=== PATIENT | male | born 1960 | race Caucasian/White ===

== ENCOUNTER 2023-12-15 09:33 | Inpatient (IN) | payer BC, SELFPAY ==
--- NOTE | 2023-11-16 08:28 | CM ---
Patient is scheduled for a L TK Revision on 12/15/23. Spoke with patient prior to surgery via telephone. Introduced role of Orthopedic Navigator. Patient reports that he lives with his in a two story home. There are three steps to enter and a
flight of steps to the second floor. Patient plans to stay on the first floor after surgery. He currently functions independently. He has a cane and rolling walker. He had VN services after his TKR in 2021 (which was done at an outside facility).
PCP is Yung Cordero.
Discussed orthopedic program and post surgical plans. Reviewed anticipated length of stay and that goal is for her to return home at discharge. Also reviewed outpatient PT. Patient is in agreement with tentative plan and will go directly to
outpatient PT at [facility]. He will have support from his when he goes home.
Patient will complete online education.
Plan: Orthopedic Navigator will remain available to assist with the care of patient and will reassess discharge needs after surgery.
[2023-11-25 09:20] VITALS: BMI 29.0
[2023-11-25 10:46] LABS: Hematocrit 49.8 % (39.0-52.0); Hemoglobin 16.7 g/dL (13.0-18.0); Mean Corp Hgb Conc. 33.5 g/dL (33.0-37.0); Mean Corpuscular Volume 92.6 fL (80.0-94.0); Mean Platelet Volume 10.6 fL (7.4-10.4); Platelet Count 246 10^3/uL (130-400); Red Blood Cell Count 5.38 10^6/uL (4.70-6.10); Red Cell Dist. Width 12.8 % (11.5-14.5); White Blood Cell Count 6.3 10^3/uL (4.8-10.8)
[2023-11-25 12:57] LABS: Glycohemoglobin (HgbA1c) 5.4 % (4.0-5.6)
[2023-11-25 12:59] LABS: ALT (SGPT) 35 U/L (0-50); AST (SGOT) 36 U/L (17-59); Albumin 4.6 g/dl (3.5-5.0); Alkaline Phosphatase 71 U/L (38-126); Blood Urea Nitrogen 19 mg/dl (9-20); Calcium 9.9 mg/dl (8.4-10.2); Carbon Dioxide 28 mmol/L (22-30); Chloride 103 mmol/L (98-107); Estimated Creatinine Clearance 87 ml/min; Glucose 86 mg/dl (70-99); Potassium 5.3 mmol/L (3.5-5.1); Sodium 140 mmol/L (135-145); Total Bilirubin 1.1 mg/dl (0.2-1.3); eGFR > 60.00
[2023-11-25 16:46] VITALS: BMI 29.0
[2023-12-15] VITALS (14 sets, daily range): BP systolic 99–141; BP diastolic 41–90; PULSE 65; O2SAT 95
[2023-12-15] MEDS: NORMOSOL-R 1000 IV (09:45)
[2023-12-15] MEDS: VANCOCIN 300 MG IV (10:00)
[2023-12-15] MEDS: VANCOCIN 300 ML IV (10:00)
[2023-12-15] MEDS: CELEBREX 200 MG PO (10:10)
[2023-12-15] MEDS: TYLENOL 650 MG PO ×3 (10:11→19:56)
--- NOTE | 2023-12-15 15:18 | W.PN.UPDATE ---
Update Note
Progress Note Update
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
DVT prophylaxis - ASA, b/l venous foot pumps
HTN - + parameters - monitor BP
Asthma, mild and intermittent, and GLORIA, no current CPAP - monitor O2
- IS
- Resume inhalers
- Add supplemental O2 HS
MRSA positive nasal screen 11/25/2023 - add IV Vanco in addition to IV Ancef for joint prophylaxis
- Did advise he continue nasal Mupirocin BID 2 weeks post-surgery as incision heals
Osteoarthritis, status post left total knee arthroplasty, 05/2022, by Dr. Rajan Trinidad
Hyperlipidemia
Sinus bradycardia, medication induced, asymptomatic
CAD/NSTEMI, 2016, status post PCI with drug-eluting stent to mid LAD
Peripheral vascular disease without claudication
Chronic low back pain
Mild hyperkalemia
--- NOTE | 2023-12-15 15:19 | W.PN.UPDATE ---
Update Note
Progress Note Update
Patient seen in PACU. VSS. Pulm: nonlabored. CV: regular. LLE: Dressing CDI. Calf soft. Able to fully extend. Postop xrays as expected. ASA for DVT prophylaxis. Plan for discharge home tomorrow with outpatient PT.
[2023-12-15] MEDS: NSS 1000 IV (15:37)
[2023-12-15] MEDS: DILAUDID 0.25 MG IV (16:50)
[2023-12-15] MEDS: ROXICODONE 5 MG PO (17:33)
--- NOTE | 2023-12-15 17:53 | PTCARENOTE ---
Pt arrived to 2S in bed. Full assessment completed. B/l LE neurovascular assessment WDL. L knee primaseal saturated, DSG reinforced with pressure DSG by HYDRAUL[employer] GOVERNOR ASSEMBLER. Per HYDRAULIC GOVERNOR ASSEMBLER Dr Trinidad aware and anticipated to be in to see pt later this evening. IVF
infusing per order. Bed locked and in the lowest position, safety maintained. Oriented to room and call reeves, daughter at bedside.
[2023-12-15] MEDS: VITAMIN D3 (cholecalciferol) PO (17:59)
[2023-12-15] MEDS: ASPIRIN 325 MG PO (18:08)
[2023-12-15] MEDS: ANCEF 5 IV (18:08)
[2023-12-15] MEDS: ZETIA 10 MG PO (18:08)
[2023-12-15] MEDS: BACTROBAN 2% OINTMENT 1 APPLIC NASAL (19:56)
[2023-12-15] MEDS: DECADRON 4 MG PO (19:57)
[2023-12-15] MEDS: COLACE 100 MG PO (19:58)
[2023-12-15] MEDS: SENOKOT 17.1999999999999993 MG PO (19:58)
[2023-12-15] MEDS: ROXICODONE 10 MG PO (19:58)
[2023-12-15] MEDS: PEPCID 20 MG PO (21:18)
[2023-12-15] MEDS: LIPITOR 80 MG PO (21:18)
[2023-12-15] MEDS: VANCOCIN 200 IV (21:19)
[2023-12-15] MEDS: DILAUDID 0.5 MG IV (21:24)
--- NOTE | 2023-12-15 21:48 | W.PN.UPDATE ---
Update Note
Progress Note Update
Patient seen and examined. Bleeding about the knee dressing. Bandage removed and active oozing from the mid portion of the incision and distal aspect of the incision. Additional maria dolores added. Oozing stopped. New Aquacell placed with
compression dressing. Oral TXA ordered. VSS. NVI distally. Calf soft.
[2023-12-15] MEDS: CYKLOKAPRON 1300 MG PO (21:54)
--- NOTE | 2023-12-15 22:01 | PTCARENOTE ---
Dr. Trinidad in to see pt. Left knee dressing oozing and reinforced dressing is saturated. Dr. Trinidad at bedside to take down dressing, assess knee, and place new dressing. medications administered as ordered. Pt now resting comfortably. Will continue
to monitor.
[2023-12-16] MEDS: TYLENOL 650 MG PO ×3 (00:55→12:13)
[2023-12-16] MEDS: DILAUDID 4 MG PO ×3 (00:55→10:12)
[2023-12-16] MEDS: ANCEF 5 IV (01:06)
[2023-12-16 03:05] VITALS: BP 117/60
[2023-12-16] MEDS: TYLENOL PO (04:46)
--- NOTE | 2023-12-16 07:36 | W.PN.ORTHO ---
Today's Communication / Plan
-
Plan for discharge home today with outpatient PT on Tuesday
Assessment
.
Distal Motor Intact: Yes
Dressing:
Clean, dry and intact.
Assessment:
Doing well postop
Plan
.
Surgery / Date: 12/15/2023 Amos LTKRevision
DVT Prophylaxis: Aspirin
Activity:
Out of bed.
PT/OT
Discharge Plan: Home w/ Outpatient PT
Subjective
.
.:
Patient resting comfortably. OOB today.
Vital Signs and Labs
.
Vital Signs and Labs:
Lab Results
11/25/23 09:14
11/25/23 09:14
Temp Pulse Resp BP Pulse Ox
97.9 F 60 20 117/60 96
12/16/23 03:05 12/16/23 03:05 12/16/23 03:05 12/16/23 03:05 12/16/23 03:05
Physical Exam
-
Pulm: nonlabored
CV: regular
LLE: Dressing CDI this AM. No significant bleeding. Calf soft. NVI distally. Able to fully extend
[2023-12-16 07:40] VITALS: BP 107/55
[2023-12-16 08:21] VITALS: BP 107/55
--- NOTE | 2023-12-16 08:27 | W.DCSUMMARY ---
Discharge Summary
Discharge Data
Date of Admission: 12/15/23
Date of Discharge: 12/16/23
-
Pending Results: No
Hospital Course
The patient underwent left total knee arthroplasty revision for aseptic loosening with Dr. Trinidad without complications. The patient recovered in the PACU and was transferred to the floor. The postoperative course remained uncomplicated. At the
time of discharge, the patient was noted to be tolerating a regular diet, ambulating with adherence to weightbearing and activity restrictions, able to accomplish activities of daily living at baseline level, and had pain controlled on oral
medications. Prior to discharge, the patient was provided with appropriate discharge/follow-up/return instructions, and discharge medications
Discharge Plan
-
Patient Disposition: Home (Routine Discharge)
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
Condition: Good
Diet: Regular
Activity: As tolerated and With Walker
Driving Restrictions: Not until seen by your Dr
Bathing Restrictions: OK to Shower
Other Services: PT
Wound Care: Dressing to be removed 1 week post-surgery. [place] to be removed at 2 week follow-up with surgeon's office.
Stand Alone Forms: Total Hip/Knee Replacement D/C
Referrals:
[facility], outpatient PT [Other] - 12/19/23
Rajan Trinidad MD [Active] - in two weeks
Yung Yepez MD [Family Provider] -
Prescriptions:
New
mupirocin 2 % ointment
1 applic intranasal BID Qty: 1 0RF
Patient Comments:
pt started Tuesday night
aspirin 325 mg Tablet
325 mg PO DAILY 30 Days Qty: 30 0RF
docusate sodium 100 mg Capsule
100 mg PO BID 15 Days Qty: 30 0RF
dexamethasone 4 mg Tablet
4 mg PO BID 3 Days Qty: 6 0RF
famotidine 20 mg Tablet
20 mg PO HS 15 Days Qty: 15 0RF
oxycodone 5 mg Tablet
5 mg PO Q4HPRN PRN (Reason: moderate pain) Qty: 20 0RF
Rx Instructions:
Dr Randy Carson [id number]
Continuing therapy
sennosides [Senna Laxative] 8.6 mg Tablet
17.2 mg PO BID 15 Days Qty: 60 0RF
acetaminophen 325 mg Tablet
650 mg PO Q4HWA 10 Days Qty: 120 0RF
Continued
atorvastatin 80 mg Tablet
80 mg PO HS
valsartan 80 mg Tablet
80 mg PO DAILY
amlodipine 5 mg Tablet
5 mg PO BID
metoprolol succinate 25 mg Tablet Extended Release 24 Hr
12.5 mg PO DAILY
albuterol sulfate [Ventolin HFA] 90 mcg/actuation Hfa Aerosol Inhaler
2 puff INHALATION Q6H PRN (Reason: SOB)
ezetimibe 10 mg Tablet
10 mg PO DAILY
coenzyme Q10 [CoQ-10] 100 mg Capsule
300 mg PO HS
astaxanthin 12 mg Capsule
6 mg PO DAILY
Weed 3
1 cap PO DAILY
Mario Alberto Niagen
1 cap PO DAILY
cholecalciferol (vitamin D3) [Vitamin D3] 125 mcg (5,000 unit) Tablet
125 mcg PO DAILY
vitamin K2 100 mcg Capsule
100 mcg PO DAILY
turmeric
1,000 mg PO DAILY
celecoxib [Celebrex] 200 mg Capsule
200 mg PO DAILY
Discontinued
naproxen sodium [Aleve] 220 MG tablet
220 mg PO DAILYPRN PRN (Reason: pain)
aspirin [Aspir-81] 81 mg Tablet,Delayed Release (/Ec)
81 mg PO DAILY
Discharge Orders:
Discharge Patient (As Directed); Ordered 12/16/23
Ordered By: Jeffrey Foreman
Discharge Date and Time
Print Language: QATARI
--- NOTE | 2023-12-16 08:34 | CM ---
Addendum entered by Verónica David 12/16/23 11:11:
Patient did well in therapy. He and his have no concerns about discharge plans.
Original Note:
Reviewed chart and held rounds with PT, OT and nursing. Patient admitted as planned for L TK Revision. Met with patient at bedside. Confirmed information previously obtained for assessment. Also discussed discharge plans. The plan is for patient to
return home at discharge. He will have support from his when he goes home. Patient will go directly to outpatient PT and will go to [facility]. He has an appointment scheduled for Tuesday, 12/18.
Patient has a rolling walker and cane.
He will use [facility] pharmacy for discharge prescriptions.
[2023-12-16] MEDS: COLACE 100 MG PO (08:56)
[2023-12-16] MEDS: CELEBREX 200 MG PO (08:57)
[2023-12-16] MEDS: VITAMIN D3 (cholecalciferol) 125 MCG PO (08:57)
[2023-12-16] MEDS: DECADRON 4 MG PO (08:58)
[2023-12-16] MEDS: ASPIRIN 325 MG PO (08:58)
[2023-12-16] MEDS: SENOKOT 17.1999999999999993 MG PO (08:58)
[2023-12-16] MEDS: CYKLOKAPRON 1300 MG PO (08:58)
[2023-12-16] MEDS: BACTROBAN 2% OINTMENT 1 APPLIC NASAL (08:59)
[2023-12-16 09:53] VITALS: BP 142/66; PULSE 66; O2SAT 98
[2023-12-16 11:20] VITALS: BP 144/73
[2023-12-16] MEDS: TOPROL XL 12.5 MG PO (11:21)
== END 2023-12-16 12:22 | disposition home or self-care (01) | DRG 468 ==
LOC: 2 SOUTH 09:33
PROVIDERS: ADMITTING PHYSICIAN Orthopaedic Surgery; FAMILY PHYSICIAN Family Medicine
PROC: 0SPD0JZ Removal of Synthetic Substitute from Left Knee Joint, Open Approach (ICD-10-PCS; 2023-12-15)
PROC: 0SRD0J9 Replacement of Left Knee Joint with Synthetic Substitute, Cemented, Open Approach (ICD-10-PCS; 2023-12-15)
DX: T84.033A Mechanical loosening of internal left knee prosthetic joint, initial encounter (principal)
CPT/HCPCS: 36415; 73560; 80053; 83036; 85027; 86850; 86900; 86901; 87070; 87147; 93005; 97110; 97116; 97162; 97166